=== PATIENT | female | born 1970 | race Caucasian/White ===

== ENCOUNTER 2023-12-16 14:35 | Emergency (ER) | payer BC ==
[~2023-12-16] VITALS: Ht 165.1 cm; Wt 70.3 kg
[2023-12-16] MEDS ORDERED: ONDANSETRON HCL/PF 4 MG/2 ML VIAL ONE (15:58)
[2023-12-16] MEDS ORDERED: KETOROLAC TROMETHAMINE INJ 30 MG/ML VIAL ONE (15:58)
[2023-12-16] MEDS: KETOROLAC TROMETHAMINE 15 MG/ML VIAL IV ONE (16:04)
[2023-12-16] MEDS: ONDANSETRON HCL/PF 4 MG/2 ML VIAL IVP ONE (16:04)
[2023-12-16] MEDS: IV NS 0.9% 1,000 ML BAG IV ONE (16:06)
[2023-12-16 16:20] LABS: BASOPHILS % (AUTO) 0.6 % (0.0-2.0); EOSINOPHILS # (AUTO) 0.2 K/uL (0.0-0.7); EOSINOPHILS % (AUTO) 2.2 % (0.0-6.0); HEMATOCRIT 41 % (33-45); HEMOGLOBIN 13.7 g/dL (11.5-14.8); LYMPHOCYTES # (AUTO) 2.4 K/uL (0.8-4.8); MEAN CORPUSCULAR HEMOGLOBIN 30 PG (26.0-33.0); MEAN CORPUSCULAR HGB CONC 33 g/dl (31.0-36.0); MEAN CORPUSCULAR VOLUME 91 fL (82-100); MONOCYTES # (AUTO) 0.5 K/uL (0.1-1.30); MONOCYTES % (AUTO) 6.4 % (2.0-12.0); NEUTROPHILS # (AUTO) 5.1 K/uL (1.8-8.9); NEUTROPHILS % (AUTO) 61.8 % (43.0-81.0); PLATELET COUNT (AUTO) 251 K/uL (150-450); RED BLOOD CELL COUNT(AUTO) 4.55 MIL/uL (4.0-5.2); RED CELL DISTRIBUTION WIDTH 14.4 % (11.5-15.0); WHITE BLOOD COUNT (AUTO) 8.2 K/uL (4.3-11.0)
[2023-12-16 16:26] LABS: CALCIUM, SERUM 8.9 mg/dL (8.5-10.1); CREATININE 0.7 mg/dL (0.6-1.3); POTASSIUM 4.3 mmol/L (3.5-5.1)
[2023-12-16 16:32] LABS: ALBUMIN 3.9 g/dL (3.4-5.0); BILIRUBIN,DIRECT 0.2 mg/dL (0.0-0.2); BILIRUBIN,TOTAL 0.7 mg/dL (0.2-1.0); TOTAL PROTEIN, SERUM 7.1 g/dL (6.4-8.2)
[2023-12-16 16:55] LABS: APPEARANCE,URINE Clear (CLEAR); BILIRUBIN,URINE Negative (NEGATIVE); BLOOD, URINE Negative Ery/uL (NEGATIVE); COLOR,URINE LIGHT YELLOW (YELLOW); KETONES,URINE Negative (NEGATIVE); LEUKOCYTE ESTERASE ,URINE Negative (NEGATIVE); NITRITE, URINE Negative (NEGATIVE); PH,URINE 8.5 (5.0-8.0); PROTEIN,URINE Negative (NEGATIVE); UGLUCOSE Negative (NEGATIVE); UROBILINOGEN,URINE 0.2 EU/dL (0.2)
[2023-12-16] MEDS ORDERED: POLY119P2 PO (17:09)
[2023-12-16 17:24] VITALS: BP 108/77; TEMP 98.4; O2SAT 100
== END 2023-12-16 17:24 | disposition home or self-care (01) ==
LOC: ER 14:37
DX: K59.00 Constipation, unspecified (principal); R10.12 Left upper quadrant pain; R11.0 Nausea; Z60.2 Problems related to living alone
CPT/HCPCS: 99285; 74176; 96374; 71045; 96361; 96375; 85025; 80048; 83690; 80076; 81003; 36415; J1885; J2405; J7030